=== PATIENT | female | born 1930 | race Caucasian/White ===

== ENCOUNTER 2017-05-24 13:44 | Outpatient (CLI) | payer MEDICARE, OTHER ==
[2014-11-26 08:58] VITALS: BP 152/63
[2017-05-24 14:09] LABS: eGFR (African) > 60; eGFR (Non-African) > 60
== END 2017-05-24 13:45 ==
LOC: LABRHC 13:44
PROVIDERS: ATTEND Family Medicine
DX: E11.9 Type 2 diabetes mellitus without complications (principal)
CPT/HCPCS: 80053; 80061; 83036

== ENCOUNTER 2018-03-21 15:18 | Outpatient (CLI) | payer MEDICARE, OTHER ==
[2014-11-26 08:58] VITALS: BP 152/63
--- NOTE | 2018-03-21 17:38 | Diagnostic Imaging Report ---
CYRIL PRICE [facility] [address] [facility].[address] [address] Report Submission Date: March 21, 2018 4:42:22 PM CDT Patient Study Name: KATHERINE SMITH Date: March 21, 2018 3:36:08 PM CDT Modality Type: DX Gender: F Description: PELVIS : 32 Institution: [facility] Physician: CYRIL PRICE Examination: Plain film right hip History: RT HIP, PAIN IN RT HIP X3-4 MONTHS, WORSENING (Hx) Comparison exams: None provided Findings: 2 views of the hip demonstrates osteopenia. 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 No fracture no dislocation. Mild vascular calcifications. Impression: Osteopenia and degenerative changes. No fracture. Electronically signed on March 21, 2018 4:42:22 PM CDT by: Justin TOLBERT
== END 2018-03-21 15:20 ==
LOC: RAD 15:18
PROVIDERS: ATTEND Family Medicine
DX: M25.551 Pain in right hip (principal)
CPT/HCPCS: 73502

== ENCOUNTER 2018-08-22 14:15 | Outpatient (CLI) | payer MEDICARE, OTHER ==
[2014-11-26 08:58] VITALS: BP 152/63
[2018-08-23 02:31] LABS: TOTAL PROTEIN 7.1 g/dL (6.0-8.5)
== END 2018-08-22 14:17 ==
LOC: LABRHC 14:15
PROVIDERS: ATTEND Family Medicine
DX: E11.9 Type 2 diabetes mellitus without complications (principal)
CPT/HCPCS: 36415; 80053; 80061; 83036

== ENCOUNTER 2018-09-11 15:45 | Outpatient (CLI) | payer MEDICARE, OTHER ==
[2014-11-26 08:58] VITALS: BP 152/63
--- NOTE | 2018-09-11 16:42 | Diagnostic Imaging Report ---
CYRIL PRICE [facility] [address] [facility] [address] [address] Report Submission Date: Sep 11, 2018 4:34:04 PM CHIEF SCIENTIFIC OFFICER Patient Study Name: KATHERINE SMITH Date: Sep 11, 2018 3:54:44 PM CHIEF SCIENTIFIC OFFICER Modality Type: DX Gender: F Description: PELVIS : 32 Institution: [facility] Physician: CYRIL PRICE Left hip, 2 views HISTORY Hip pain. FINDINGS No prior examination is available for comparison at the time of interpretation. The patient is status post left hip arthroplasty. There is no fracture, dislocation or abnormal bone destruction. IMPRESSION Left hip arthroplasty. Electronically signed on Sep 11, 2018 4:34:04 PM CHIEF SCIENTIFIC OFFICER by: Marty TOLBERT
== END 2018-09-11 15:46 ==
LOC: RAD 15:45
PROVIDERS: ATTEND Family Medicine
DX: M25.552 Pain in left hip (principal); W19.XXXD Unspecified fall, subsequent encounter

== ENCOUNTER 2018-12-17 13:31 | Outpatient (CLI) | payer MEDICARE, OTHER ==
[2014-11-26 08:58] VITALS: BP 152/63
--- NOTE | 2018-12-17 14:24 | Diagnostic Imaging Report ---
CYRIL PRICE [facility] [address] [facility].[address] [address] Report Submission Date: Dec 17, 2018 2:23:32 PM RADIATOR TESTER Patient Study Name: KATHERINE SMITH Date: Dec 17, 2018 1:37:22 PM RADIATOR TESTER Modality Type: DX Gender: F Description: CHEST 2VIEW : 31 Institution: [facility] Physician: CYRIL PRICE HISTORY: 88-year-old female with cough COMPARISON: None available TECHNIQUE: 2 views of the chest were performed. FINDINGS: The lungs are hyperexpanded. No pneumothorax, consolidative infiltrates, pleural effusions, or pulmonary edema. There are calcified lymph nodes in the right hilum and right pericardial fat pad. The heart is not enlarged. The aortic arch is calcific. 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 IMPRESSION: 1. Pulmonary hyperexpansion without evidence of acute intrathoracic process. 2. Old granulomatous disease of the chest. 3. Atherosclerotic vascular disease. Electronically signed on Dec 17, 2018 2:23:32 PM RADIATOR TESTER by: Chandra TOLBERT
== END 2018-12-17 13:33 ==
LOC: RAD 13:31
PROVIDERS: ATTEND Family Medicine
DX: R05 Cough (principal); I70.0 Atherosclerosis of aorta
CPT/HCPCS: 71046